=== PATIENT | male | born 1945 | race Asian ===

== ENCOUNTER 2024-03-15 16:47 | Inpatient (IN) | payer OTHER ==
[~2024-03-15] VITALS: Ht 152.4 cm; Wt 68.0 kg
[2024-03-15 16:57] VITALS: BP 90/50; PULSE 90; RESP 16; TEMP 97.9; O2SAT 96
[2024-03-15 18:14] LABS: BASOPHILS % (AUTO) 0.3 % (0.0-2.0); EOSINOPHILS # (AUTO) 0.2 K/uL (0-0.4); EOSINOPHILS % (AUTO) 2.3 % (0.0-4.0); HEMATOCRIT 28.4 % (36-52); HEMOGLOBIN 9.2 g/dL (12.0-18.0); LYMPHOCYTES # (AUTO) 0.5 K/uL (2.0-11.5); LYMPHOCYTES % (AUTO) 6.1 % (20.5-51.1); MEAN CORPUSCULAR HEMOGLOBIN 29 pg (27-31); MEAN CORPUSCULAR HGB CONC 32 g/dL (33-37); MEAN CORPUSCULAR VOLUME 90.2 fL (80-94); MONOCYTES # (AUTO) 1.4 K/uL (0.8-1.0); MONOCYTES % (AUTO) 16.5 % (1.7-9.3); NEUTROPHILS # (AUTO) 6.4 K/uL (1.8-7.7); NEUTROPHILS % (AUTO) 74.8 % (42.2-75.2); PLATELET COUNT (AUTO) 148 K/uL (140-450); RED BLOOD CELL COUNT(AUTO) 3.15 MIL/uL (4.20-6.10); RED CELL DISTRIBUTION WIDTH 23.3 % (11.6-13.7); WHITE BLOOD COUNT (AUTO) 8.5 K/uL (4.8-10.8)
[2024-03-15 18:26] LABS: ALANINE AMINOTRANSFERASE 30 U/L (12-78); ALBUMIN 2.1 g/dL (3.4-5.0); ALKALINE PHOSPHATASE 130 U/L (50-136); ASPARTATE AMINOTRANSFERASE 25 U/L (15-37); BILIRUBIN,DIRECT 0.2 mg/dL (0.0-0.3); TOTAL BILIRUBIN 0.4 mg/dL (0.0-1.0)
[2024-03-15 18:30] LABS: ANION GAP 11.4 (8-16); CALCIUM 8.9 mg/dL (8.5-10.1); CARBON DIOXIDE 29.1 mmol/L (21-32); CHLORIDE 100 mmol/L (98-107); CREATININE 2.7 mg/dL (0.6-1.3); GLUCOSE 87 mg/dL (74-106); SODIUM SERUM 138 mmol/L (136-145); UREA NITROGEN, BLOOD 29 mg/dL (7-18)
[2024-03-15 18:33] LABS: POTASSIUM 2.5 mmol/L (3.5-5.1)
[2024-03-15 18:34] LABS: INR 1.01 (0.8-1.2); PARTIAL THROMBOPLASTIN TIME 34.9 secs (22-35.6); PROTHROMBIN TIME 10.6 secs (10.8-13.4)
[2024-03-15 19:26] VITALS: O2SAT 99
[2024-03-15] MEDS ORDERED: LEVO50CA2 GT (21:58)
[2024-03-15] MEDS ORDERED: ACET500T99 GT (21:58)
[2024-03-15] MEDS ORDERED: DOCU-299 PO (21:58)
[2024-03-15] MEDS ORDERED: BISA-227 PO (21:58)
[2024-03-15] MEDS ORDERED: CARV12.5 PO (21:58)
[2024-03-15] MEDS ORDERED: ASCO500T95 PO (21:58)
[2024-03-15] MEDS ORDERED: AMIO200T62 GT (21:58)
[2024-03-15] MEDS ORDERED: CALC667T8 PO (21:58)
[2024-03-15] MEDS ORDERED: SUCR1SUS7 GT (21:58)
[2024-03-15] MEDS ORDERED: APIX2.5 GT (21:58)
[2024-03-16] VITALS (12 sets, daily range): BP systolic 120–169; BP diastolic 62–89; PULSE 70–98; RESP 16–21; TEMP 95.3–98; O2SAT 96–100
[2024-03-16] MEDS ORDERED: ACETAMINOPHEN 325 MG TAB PO PRN (00:55)
[2024-03-16] MEDS ORDERED: HYDROcodone/APAP 5/325 MG 1 TAB TAB PO PRN (00:55)
[2024-03-16] MEDS ORDERED: MAGNESIUM OXIDE 400 MG TAB PO PRN (00:55)
[2024-03-16] MEDS ORDERED: ONDANSETRON 4 MG/2 ML VIAL IVP PRN (00:55)
[2024-03-16] MEDS ORDERED: POTASSIUM CHLORIDE 10 MEQ TABER PO PRN (00:55)
[2024-03-16] MEDS ORDERED: MORPHINE SULFATE 2 MG/ML SYR IVP PRN (00:55)
[2024-03-16] MEDS ORDERED: MEDS-TO-BEDS MC SCH (09:00)
[2024-03-16] MEDS: KCL 20 MEQ IN 100 mL PREMIX 200 ML IV PRN (09:29)
[2024-03-16 17:05] LABS: BASOPHILS # (AUTO) 0.1 K/uL (0.00-0.22); BASOPHILS % (AUTO) 0.8 % (0.0-2.0); EOSINOPHILS # (AUTO) 0.7 K/uL (0-0.4); EOSINOPHILS % (AUTO) 10.1 % (0.0-4.0); HEMATOCRIT 28.2 % (36-52); HEMOGLOBIN 9.1 g/dL (12.0-18.0); LYMPHOCYTES # (AUTO) 0.9 K/uL (2.0-11.5); LYMPHOCYTES % (AUTO) 12.8 % (20.5-51.1); MEAN CORPUSCULAR HEMOGLOBIN 30 pg (27-31); MEAN CORPUSCULAR HGB CONC 32 g/dL (33-37); MEAN CORPUSCULAR VOLUME 91.8 fL (80-94); MONOCYTES # (AUTO) 0.9 K/uL (0.8-1.0); MONOCYTES % (AUTO) 12.2 % (1.7-9.3); NEUTROPHILS # (AUTO) 4.5 K/uL (1.8-7.7); NEUTROPHILS % (AUTO) 64.1 % (42.2-75.2); PLATELET COUNT (AUTO) 163 K/uL (140-450); RED BLOOD CELL COUNT(AUTO) 3.07 MIL/uL (4.20-6.10); RED CELL DISTRIBUTION WIDTH 23.7 % (11.6-13.7); WHITE BLOOD COUNT (AUTO) 7.1 K/uL (4.8-10.8)
[2024-03-16] MEDS: ASCORBIC ACID 500 MG TAB GT SCH (22:58)
[2024-03-16] MEDS: POLYETHYLENE GLYCOL 17 GM/PKT PO SCH (22:58)
[2024-03-17] VITALS (9 sets, daily range): BP systolic 134–189; BP diastolic 73–88; PULSE 77–92; RESP 18–20; TEMP 96.9–97.9; O2SAT 99–100
[2024-03-17] MEDS: LEVOTHYROXINE 0.05 MG TAB PO SCH (06:20)
[2024-03-17 07:00] LABS: BASOPHILS % (AUTO) 0.8 % (0.0-2.0); EOSINOPHILS # (AUTO) 0.6 K/uL (0-0.4); EOSINOPHILS % (AUTO) 11.1 % (0.0-4.0); HEMATOCRIT 25.8 % (36-52); HEMOGLOBIN 8.5 g/dL (12.0-18.0); LYMPHOCYTES # (AUTO) 0.5 K/uL (2.0-11.5); LYMPHOCYTES % (AUTO) 9.4 % (20.5-51.1); MEAN CORPUSCULAR HEMOGLOBIN 30 pg (27-31); MEAN CORPUSCULAR HGB CONC 33 g/dL (33-37); MONOCYTES # (AUTO) 0.7 K/uL (0.8-1.0); MONOCYTES % (AUTO) 12.4 % (1.7-9.3); NEUTROPHILS # (AUTO) 3.6 K/uL (1.8-7.7); NEUTROPHILS % (AUTO) 66.3 % (42.2-75.2); PLATELET COUNT (AUTO) 181 K/uL (140-450); RED BLOOD CELL COUNT(AUTO) 2.83 MIL/uL (4.20-6.10); RED CELL DISTRIBUTION WIDTH 23.9 % (11.6-13.7); WHITE BLOOD COUNT (AUTO) 5.5 K/uL (4.8-10.8)
[2024-03-17 07:12] LABS: ALANINE AMINOTRANSFERASE 36 U/L (12-78); ALBUMIN 2.1 g/dL (3.4-5.0); ALKALINE PHOSPHATASE 98 U/L (50-136); ASPARTATE AMINOTRANSFERASE 33 U/L (15-37); CALCIUM 9.3 mg/dL (8.5-10.1); CARBON DIOXIDE 27.9 mmol/L (21-32); CHLORIDE 100 mmol/L (98-107); GLUCOSE 99 mg/dL (74-106); MAGNESIUM 2.5 mg/dL (1.8-2.4); SODIUM SERUM 138 mmol/L (136-145); TOTAL BILIRUBIN 0.4 mg/dL (0.0-1.0); TOTAL PROTEIN, SERUM 6.2 g/dL (6.4-8.2); UREA NITROGEN, BLOOD 49 mg/dL (7-18)
[2024-03-17 07:14] LABS: CREATININE 4.4 mg/dL (0.6-1.3); POTASSIUM 2.9 mmol/L (3.5-5.1)
[2024-03-17] MEDS ORDERED: NON-FORMULARY ITEM (Calcium Acetate 1 TAB) PO SCH (09:00)
[2024-03-17] MEDS: EPOETIN ALFA-EPBX 10,000 UNITS/ML VIAL IV SCH (09:20)
[2024-03-17] MEDS: AMIODARONE 200 MG TAB GT SCH (09:20)
[2024-03-17] MEDS: CALCIUM ACETATE 667 MG TAB PO SCH (09:22)
[2024-03-17] MEDS: hydrALAZINE 20 MG/ML VIAL IVP PRN (10:04)
[2024-03-17] MEDS ORDERED: HYDRAGUARD CREAM TP PRN (11:25)
[2024-03-17] MEDS ORDERED: FOAM DRESSING TP PRN (11:25)
[2024-03-17] MEDS: SCOPOLAMINE 1.5 MG/72 HR PATCH TD SCH (12:05)
[2024-03-17] MEDS: AZITHROMYCIN 250 MG in DEXTROSE 5% 250 ML IV SCH (13:19)
[2024-03-17] MEDS: FOAM DRESSING TP SCH (13:20)
[2024-03-17] MEDS: HYDRAGUARD CREAM TP SCH (13:20)
[2024-04-03] MEDS ORDERED: APIX2.5 PO (13:36)
[2024-04-03] MEDS ORDERED: ACET-2619 PO (13:36)
[2024-04-03] MEDS ORDERED: CLON0.1T15 PO (13:36)
[2024-04-03] MEDS ORDERED: HYDR-5080 PO (13:36)
[2024-04-03] MEDS ORDERED: POTA8TAB19 PO (13:36)
[2024-04-03] MEDS ORDERED: DIPH25TA53 PO (13:36)
[2024-04-05] MEDS ORDERED: [UNRECOGNIZED DRUG - CODE] IV (13:53)
[2024-04-05] MEDS ORDERED: VANC1VIA34 MC (13:53)
== END 2024-03-17 19:05 | DRG 377 ==
LOC: MED 16:47 → MTU 03-16 00:51
PROVIDERS: ADMIT Hospitalist; ATTEND Hospitalist
PROC: 5A1D70Z Performance of Urinary Filtration, Intermittent, Less than 6 Hours Per Day (ICD-10-PCS; principal; 2024-03-17)
DX: K62.5 Hemorrhage of anus and rectum (principal); E43 Unspecified severe protein-calorie malnutrition; N18.6 End stage renal disease; I12.0 Hypertensive chronic kidney disease with stage 5 chronic kidney disease or end stage renal disease; J96.11 Chronic respiratory failure with hypoxia; G93.49 Other encephalopathy; E78.5 Hyperlipidemia, unspecified; I48.91 Unspecified atrial fibrillation; E03.9 Hypothyroidism, unspecified; K59.00 Constipation, unspecified; F03.90 Unspecified dementia, unspecified severity, without behavioral disturbance, psychotic disturbance, mood disturbance, and anxiety; D50.9 Iron deficiency anemia, unspecified; E87.6 Hypokalemia; Z99.2 Dependence on renal dialysis; Z86.73 Personal history of transient ischemic attack (TIA), and cerebral infarction without residual deficits; Z79.899 Other long term (current) drug therapy; Z88.8 Allergy status to other drugs, medicaments and biological substances; Z93.0 Tracheostomy status; Z68.29 Body mass index [BMI] 29.0-29.9, adult; D64.9 Anemia, unspecified
CPT/HCPCS: 36415; 71045; 80048; 80053; 80076; 83540; 83735; 84484; 85025; 85610; 85730; 86886; 86900; 86901; 87081; 93005; 94640; 99285; J0360; J0456; J3480; J7060; Q0092; Q5106

== ENCOUNTER 2024-04-07 08:03 | Emergency (ER) | payer OTHER ==
[~2024-04-07] VITALS: Ht 177.8 cm; Wt 81.6 kg
[~2024-04-07 08:03] MED LIST: ACET-2619 PO; ACET500T99 GT; AMIO200T62 GT; APIX2.5 PO; ASCO500T95 PO; BISA-227 PO; CALC667T8 PO; CARV12.5 PO; CLON0.1T15 PO; DIPH25TA53 PO; DOCU-299 PO; HYDR-5080 PO; LEVO50CA2 GT; POTA8TAB19 PO; SUCR1SUS7 GT; VANC1VIA34 MC; [UNRECOGNIZED DRUG - CODE] IV
[2024-04-07 08:15] VITALS: BP 152/80; PULSE 86; RESP 20; TEMP 97.5; O2SAT 95
[2024-04-07 08:22] VITALS: O2SAT 100
[2024-04-07 09:29] LABS: BASOPHILS # (AUTO) 0.1 K/uL (0.00-0.22); BASOPHILS % (AUTO) 1.2 % (0.0-2.0); EOSINOPHILS # (AUTO) 0.8 K/uL (0-0.4); EOSINOPHILS % (AUTO) 12.6 % (0.0-4.0); HEMATOCRIT 25.6 % (36-52); HEMOGLOBIN 8.2 g/dL (12.0-18.0); LYMPHOCYTES # (AUTO) 0.8 K/uL (2.0-11.5); LYMPHOCYTES % (AUTO) 11.9 % (20.5-51.1); MEAN CORPUSCULAR HEMOGLOBIN 29 pg (27-31); MEAN CORPUSCULAR HGB CONC 32 g/dL (33-37); MEAN CORPUSCULAR VOLUME 89.1 fL (80-94); MONOCYTES # (AUTO) 0.7 K/uL (0.8-1.0); MONOCYTES % (AUTO) 10.8 % (1.7-9.3); NEUTROPHILS # (AUTO) 4.1 K/uL (1.8-7.7); NEUTROPHILS % (AUTO) 63.5 % (42.2-75.2); PLATELET COUNT (AUTO) 344 K/uL (140-450); RED BLOOD CELL COUNT(AUTO) 2.88 MIL/uL (4.20-6.10); RED CELL DISTRIBUTION WIDTH 20.7 % (11.6-13.7); WHITE BLOOD COUNT (AUTO) 6.5 K/uL (4.8-10.8)
[2024-04-07 09:36] LABS: ANION GAP 16.8 (8-16); CALCIUM 9.2 mg/dL (8.5-10.1); CARBON DIOXIDE 29.3 mmol/L (21-32); CHLORIDE 102 mmol/L (98-107); GLUCOSE 125 mg/dL (74-106); POTASSIUM 4.1 mmol/L (3.5-5.1); SODIUM SERUM 144 mmol/L (136-145)
[2024-04-07 09:38] LABS: CREATININE 6.6 mg/dL (0.6-1.3); UREA NITROGEN, BLOOD 75 mg/dL (7-18)
[2024-04-07] MEDS ORDERED: MAGN400S60 PO (10:13)
[2024-04-07] MEDS ORDERED: FLEPED RC (10:13)
[2024-04-07 10:33] VITALS: O2SAT 100
[2024-04-07 12:25] VITALS: O2SAT 100
[2024-04-07 14:55] VITALS: O2SAT 100
[2024-04-07 15:08] VITALS: BP 181/91; PULSE 97; RESP 18; TEMP 97.4; O2SAT 100
== END 2024-04-07 15:06 | disposition short-term general hospital (02) ==
LOC: MED 08:03
DX: I12.0 Hypertensive chronic kidney disease with stage 5 chronic kidney disease or end stage renal disease (principal); N18.6 End stage renal disease; Z99.2 Dependence on renal dialysis; Z86.73 Personal history of transient ischemic attack (TIA), and cerebral infarction without residual deficits; Z98.890 Other specified postprocedural states; Z79.899 Other long term (current) drug therapy; Z79.01 Long term (current) use of anticoagulants
CPT/HCPCS: 36415; 71045; 80048; 83880; 84484; 85025; 93005; 99285